=== PATIENT | female | born 1965 | race Caucasian/White ===

== ENCOUNTER 2017-06-16 20:44 | Emergency (ER) | payer MEDICAID, OTHER ==
[~2017-06-16] VITALS: Ht 147.3 cm; Wt 100.0 kg
[2017-06-16 20:52] VITALS: Ht 147.3 cm; Wt 100.0 kg
[2017-06-16] MEDS ORDERED: ONDANSETRON 4 MG INJ IV STA (22:47)
[2017-06-16] MEDS ORDERED: SOD CHLORIDE 0.9% 500 ML IV STA (22:47)
[2017-06-16] MEDS ORDERED: morphine 4 MG/ML VIAL IV STA (22:47)
--- NOTE | 2017-06-16 23:29 | RADRPT ---
PROCEDURE: XR Chest. CLINICAL INDICATION: Abdominal pain. TECHNIQUE: Single frontal view of the chest. COMPARISON: None. FINDINGS: Cardiomegaly. Atherosclerotic calcifications in the thoracic aorta. Hypoinflated lungs and patient b darrin habitus accentuate pulmonary vascular markings at lung bases. Mild bibasilar atelectasis. Lungs otherwise clear. No signs of pleural fluid or pneumothorax are seen. The osseous structures and soft tissues are unremarkable. IMPRESSION: Mild bibasilar atelectasis. RPTAT: [facility] Physician Nicole Date Time Electronically viewed and signed by Physician Nicole on 06/16/2017 23:29 RS/
[2017-06-16 23:37] LABS: BASOPHILS % 0.4 % (0.0-2.0); EOSINOPHILS # 0.4 10^3/ul (0.0-0.5); EOSINOPHILS % 5.3 % (0.0-7.0); HEMATOCRIT 40.4 % (37.0-47.0); HEMOGLOBIN 12.9 g/dl (12.0-16.0); LYMPHOCYTES # 2.1 10^3/ul (0.8-2.9); LYMPHOCYTES % 25.4 % (15.0-51.0); MEAN CORPUSCULAR HEMOGLOBIN 30.2 pg (29.0-33.0); MEAN CORPUSCULAR HGB CONC 31.9 g/dl (32.0-37.0); MEAN CORPUSCULAR VOLUME 94.6 fl (82.0-101.0); MEAN PLATELET VOLUME 10.1 fl (7.4-10.4); MONOCYTE # 0.5 10^3/ul (0.3-0.9); MONOCYTES % 6.7 % (0.0-11.0); NEUTROPHILS % 61.8 % (39.0-77.0); PLATELET COUNT 298 10^3/UL (140-415); RED BLOOD COUNT 4.27 10^6/ul (4.20-5.40); RED CELL DISTRIBUTION WIDTH 12.5 % (11.5-14.5); WHITE BLOOD COUNT 8.1 10^3/ul (4.8-10.8)
[2017-06-16 23:44] LABS: ADD UMIC YES; UR ASCORBIC ACID NEGATIVE (NEGATIVE); UR BILIRUBIN (Dip) NEGATIVE (NEGATIVE); UR BLOOD (Dip) NEGATIVE (NEGATIVE); UR CLARITY CLEAR (CLEAR); UR COLOR STRAW (YELLOW); UR GLUCOSE (Dip) NEGATIVE (NEGATIVE); UR KETONES (Dip) NEGATIVE (NEGATIVE); UR LEUKOCYTE ESTERASE (Dip) TRACE Leu/ul (NEGATIVE); UR NITRITE (Dip) NEGATIVE (NEGATIVE); UR RBC 1 /HPF (0-5); UR SPECIFIC GRAVITY (Dip) 1.006 (1.003-1.030); UR TOTAL PROTEIN (Dip) NEGATIVE (NEGATIVE); UR UROBILINOGEN (Dip) NEGATIVE (NEGATIVE)
[2017-06-16 23:49] VITALS: TEMP 98.3
[2017-06-16 23:51] LABS: ALANINE AMINOTRANSFERASE 40 IU/L (13-69); ALBUMIN/GLOBULIN RATIO 1.05; ALKALINE PHOSPHATASE 114 IU/L (42-121); ANION GAP 11 (8-16); ASPARTATE AMINO TRANSFERASE 24 IU/L (15-46); BILIRUBIN,INDIRECT 0.3 mg/dl (0-1.1); BILIRUBIN,TOTAL 0.3 mg/dl (0.2-1.3); BLOOD UREA NITROGEN 14 mg/dl (7-20); CALCIUM 9.3 mg/dl (8.4-10.2); CARBON DIOXIDE 29 mmol/L (21-31); CHLORIDE 105 mmol/L (97-110); CREATININE 0.65 mg/dl (0.44-1.00); GLUCOSE 104 mg/dl (70-220); POTASSIUM 3.8 mmol/L (3.5-5.1); SODIUM 141 mmol/L (135-144); TOTAL PROTEIN 7.8 g/dl (6.1-8.1)
[2017-06-16] MEDS ORDERED: SOD CHLORIDE 0.9% 100 ML ONE (23:58)
[2017-06-16] MEDS ORDERED: IOHEXOL 300MG/ML 150 ML BTL ONE (23:58)
[2017-06-17 00:08] LABS: TROPONIN-I < 0.012 ng/ml (0.00-0.12)
--- NOTE | 2017-06-17 00:52 | RADRPT ---
PROCEDURE: CT Abdomen and Pelvis with contrast. CLINICAL INDICATION: Abdominal pain TECHNIQUE: CT scan of the abdomen and pelvis with contrast was performed on a multi-detector high- resolution CT scanner. The patient was scanned following the intravenous administration of standard dose of iodinated contrast. Coronal and sagittal reformatted images were obtained from the axial s ource images. Images were reviewed on a high-resolution PACS workstation. The total exam CTDI equals 23.03 mGy and the total exam DLP equals 1416.29 mGy-cm. One or more the following dose reduction techniques were utilized: Automated exposure control, adjus tment of the mA and / or kV according to patient's size, or use of iterative reconstruction techniqu e. DICOM images are available. COMPARISON: None available FINDINGS: Dependent atelectasis in posterior lung bases. Linear atelectasis/fibrosis at lung bases. No pneumop eritoneum is seen. No abnormality is seen in the liver, gallbladder. Food material/debris and air is seen in the stomach. No abnormality seen in the pancreas. No biliary dilatation is seen. No abnorma lity seen in the spleen, adrenals or kidneys. No abdominal aortic aneurysm is seen. Mild subcutaneou s edema posteriorly. No ascites is seen. No definite abnormality of the uterus or adnexal regions is seen on CT. No abnormality of the bladder is seen. No definite abnormality of the colon is seen. No dilated small bowel loops are seen. There is an unremarkable appendix. No enlarged lymph nodes are seen in the abdomen or pelvis. Small amount of iliac arterial calcification is seen. Likely small [place] in the right pubic body. Degenerative changes at sacroiliac joints. Degenerative changes i n thoracolumbar spine. Old right lower posterior rib fracture. Suggestive of diffuse idiopathic skeletal hyperostosis in the thoracic spine. IMPRESSION: No acute abnormality seen. Please see above. RPTAT: HJES .hSarif Millan MD, Date Time Electronically viewed and signed by .Sharif Millan MD, on 06/17/2017 00:52 .S/
--- NOTE | 2017-06-17 01:02 | ERD ---
ER Documentation Chief Complaint Chief Complaint AP WITH RADIATING PAIN CP X 7 DAYS HPI This is a 52 year female abdominal rating to her chest for the past 7 days. No nausea no vomiting no fevers no chills. No other current complaints. Pain is mild to moderate intensity no exacerbating limiting factors. No radiations. No sick contacts. No changes and eating habits or bowel habits ROS All systems reviewed and are negative except as per history of present illness. Allergies Allergies: Coded Allergies: No Known Allergy (Unverified , 06/16/17) PMhx/Soc History of Surgery: Yes ( x 1) Anesthesia Reaction: No Hx Neurological Disorder: No Hx Respiratory Disorders: No Hx Cardiac Disorders: No Hx Psychiatric Problems: No Hx Miscellaneous Medical Probl: No Hx Alcohol Use: No Hx Substance Use: No Hx Tobacco Use: Yes Smoking Status: Current every day smoker Physical Exam Vitals Vital Signs Date Time Temp Pulse Resp B/P Pulse Ox O2 Delivery O2 Flow Rate FiO2 06/16/17 23:49 98.3 88 18 119/60 96 Room Air 06/16/17 20:52 98.1 89 20 146/80 95 Physical Exam Const: [] Head: Atraumatic Eyes: Normal Conjunctiva ENT: Normal External Ears, Nose and Mouth. Neck: Full range of motion..~ No meningismus. Resp: Clear to auscultation bilaterally Cardio: Regular rate and rhythm, no murmurs Abd: Soft, non tender, non distended. Normal bowel sounds Skin: No petechiae or rashes Back: No midline or flank tenderness Ext: No cyanosis, or edema Neur: Awake and alert Psych: Normal Mood and Affect Result Diagram: 06/16/17229906/16/172299 Results 24 hrs Laboratory Tests Test 06/16/17 20:58 06/16/17 23:00 06/16/17 23:15 Bedside Glucose 106mg/dL White Blood Count 8.110^3/ul Red Blood Count 4.2710^6/ul Hemoglobin 12.9g/dl Hematocrit 40.4% Mean Corpuscular Volume 94.6fl Mean Corpuscular Hemoglobin 30.2pg Mean Corpuscular Hemoglobin Concent 31.9g/dl Red Cell Distribution Width 12.5% Platelet Count 63582^3/UL Mean Platelet Volume 10.1fl Neutrophils % 61.8% Lymphocytes % 25.4% Monocytes % 6.7% Eosinophils % 5.3% Basophils % 0.4% Nucleated Red Blood Cells % 0.0/100WBC Neutrophils # 5.010^3/ul Lymphocytes # 2.110^3/ul Monocytes # 0.510^3/ul Eosinophils # 0.410^3/ul Basophils # 0.010^3/ul Nucleated Red Blood Cells # 0.010^3/ul Sodium Level 141mmol/L Potassium Level 3.8mmol/L Chloride Level 105mmol/L Carbon Dioxide Level 29mmol/L Anion Gap 11 Blood Urea Nitrogen 14mg/dl Creatinine 0.65mg/dl Glucose Level 104mg/dl Calcium Level 9.3mg/dl Total Bilirubin 0.3mg/dl Direct Bilirubin 0.00mg/dl Indirect Bilirubin 0.3mg/dl Aspartate Amino Transf (AST/SGOT) 24IU/L Alanine Aminotransferase (ALT/SGPT) 40IU/L Alkaline Phosphatase 114IU/L Troponin I < 0.012ng/ml Total Protein 7.8g/dl Albumin 4.0g/dl Globulin 3.80g/dl Albumin/Globulin Ratio 1.05 Lipase 223U/L Urine Color STRAW Urine Clarity CLEAR Urine pH 6.0 Urine Specific Peak 1.006 Urine Ketones NEGATIVEmg/dL Urine Nitrite NEGATIVEmg/dL Urine Bilirubin NEGATIVEmg/dL Urine Urobilinogen NEGATIVEmg/dL Urine Leukocyte Esterase TRACELeu/ul Urine Microscopic RBC 1/HPF Urine Microscopic WBC 5/HPF Urine Hemoglobin NEGATIVEmg/dL Urine Glucose NEGATIVEmg/dL Urine Total Protein NEGATIVEmg/dl Current Medications Medications (Trade) Dose Ordered Sig/Heraclio Route PRN Reason Start Time Stop Time Status Last Admin Dose Admin Sodium Chloride (NS) 500 ml @ 500 mls/hr Q1H STAT IV 06/16/17 22:47 06/16/17 23:46 DC 06/16/17 23:29 Morphine Sulfate (morphine) 4 mg ONCE STAT IV 06/16/17 22:47 06/16/17 22:48 DC 06/16/17 23:29 Ondansetron HCl 4 mg 4 mg ONCE STAT IV 06/16/17 22:47 06/16/17 22:48 DC 06/16/17 23:28 Sodium Chloride (NS) 100 ml @ STK-MED ONCE .ROUTE 06/16/17 23:58 06/16/17 23:59 DC 06/17/17 00:17 Iohexol (Omnipaque 300mg/ ml) 150 ml STK-MED ONCE .ROUTE 06/16/17 23:58 06/16/17 23:59 DC 06/17/17 00:17 Procedures/MDM Medical decision made: 49-year-old female underwent abdominal pain that is since resolved. At this point clinically stable for outpatient management. Patient be discharged home. Follow-up with PCP. Departure Diagnosis: Primary Impression: Abdominal pain Abdominal location: generalized Qualified Code: R10.84 - Generalized abdominal pain Condition: Stable MILTON ALFORD Jun 17, 2017 01:02
[2017-06-17] MEDS ORDERED: ONDA4TAB14 PO (01:03)
[2017-06-17] MEDS ORDERED: RANI150T9 PO (01:03)
[2017-06-17 01:49] VITALS: BP 99/55; PULSE 88; RESP 15
== END 2017-06-17 01:50 | disposition home or self-care (01) ==
LOC: E/R 20:44
DX: R10.84 Generalized abdominal pain (principal); F17.210 Nicotine dependence, cigarettes, uncomplicated; R40.2142 Coma scale, eyes open, spontaneous, at arrival to emergency department; R40.2252 Coma scale, best verbal response, oriented, at arrival to emergency department; R40.2362 Coma scale, best motor response, obeys commands, at arrival to emergency department
CPT/HCPCS: 36415; 71010; 74177; 80053; 81001; 82962; 83690; 84484; 85025; 93005; 96374; 96375; J2270; J2405; J7040; Q9967; Z7502; Z7610